=== PATIENT | male | born 1945 | race Caucasian/White ===

== ENCOUNTER 2017-01-07 21:47 | Inpatient (IN) | payer MEDICARE, OTHER ==
[~2017-01-07] VITALS: Ht 180.3 cm; Wt 84.4 kg
[~2017-01-07 21:47] MED LIST: ATENOLOL25 MG PO; CLARITIN 10MG T10 MG PO; HYDROCHLOROTHIA25 M1 PO; PREDNISONE 20MG20 MG PO; TRAZODONE100 MG PO
[2017-01-07 21:48] VITALS: BP 139/89
[2017-01-07] MEDS ORDERED: ASPIRIN 81MG TA81 MG PO (22:02)
[2017-01-07] MEDS ORDERED: GABAPENTIN800 MG PO (22:04)
--- NOTE | 2017-01-07 22:07 | Emergency Room Report ---
History of Present Illness Time Seen by [id number] Presenting Problem in Triage Pt arrived:Walked Presenting Problem:CHEST PAIN FOR 2 HOURS CONSTANT DESCRIBES A BURNING PAIN. DENIES SOB, STATES ARMS ARE HURTING. 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 N Clinical Suspician of Infection? N Mental Status: 1 - Regular (Normal Baseline) Sepsis Risk:Low Sepsis Risk Have you (or family members/close friends) recently traveled outside the [place]? N If Yes, where/when: Have you had exposure to infectious disease within the past month? N TB? Other? Specify: Source patient, RN notes reviewed, family, old records Exam Limitations no limitations Comment pt with acute onset of chest pain with diaphoresis and pain to upper ext - no known ht disease and has htn and tob use Cardiac Chest Pain Chest pain indicative of cardiac Yes Timing/Duration 1 hour, constant Severity/Quality moderate, pressure Location central Chest Pain Radiation arm(s) Activities at Onset light activity Nitro Today/Relief no nitro taken today Aspirin Treatment Today 325 mg x 1, provided by ED Beta michael treatment today no beta michael taken Cardiac risk factors Uncontrolled HTN, + family history Prior Workup/Intervention no prior chest pain Timing/Duration this evening Severity moderate ALLERGIES Coded Allergies: No Known Allergies (01/07/17) Home Medications Reported Medications Atenolol (Atenolol) 12.5 MG PO DAILY HYDROCHLOROTHIAZIDE (Hydrochlorothiazide) 25 MG PO DAILY Trazodone Hcl (Trazodone HCl) 100 MG PO QHS ASPIRIN (Aspirin) 81 MG PO DAILY Gabapentin (Gabapentin 800MG) 800 MG PO TID History Medical History General CAD? Yes Angina: No AL: No Hypertension? Yes Hyperlipidemia? No CHF? No DVT? No PE? No COPD? No Asthma? No Anemia? No GERD? No Gastric ulcers? No GI Bleed? No Hernia? No Thyroid Problems? No Hypothyroidism? No CVA? No Seizures? No Diabetes? No Renal Insuffiency? No End Stage Renal Disease? No UTI? No Stones? No BPH? No GB Disease: No Nephritic Syndrome? No Asplenia? No Hepatitis? No Sickle Cell Disease? No Arthritis? Yes Migraines? No Cataracts? No Glaucoma? No MRSA? No HIV? No TB? No Anxiety? No Depression? No Cancer? No More? No Immunization Hx DT/Tetanus Unknown Surgical Hx Previous Surgery?Y KNEE ARTHROSCOPY BACK SURGERY TRIGGER FINGER Family History Family Hx Diabetes Yes CAD No Hypertension Yes Hyperlipidemia No Cancer Yes TB No Social History Smoking Hx Smoker: Current Every Day Smoker Tobacco: Yes Type Cigarettes Packs/day 1 1/2 - 2 Packs Alcohol Alcohol: No Drugs none Review of Systems All Other Systems Reviewed and Negative Constitutional denies fever Eyes denies drainage ENT denies: ear pain, epistaxis, throat pain. Respiratory denies cough, denies shortness of breath, denies wheezing Cardiovascular see HPI, chest pain, denies palpitations, denies syncope Gastrointestinal denies abdominal pain, denies diarrhea, denies vomiting Genitourinary denies: dysuria, frequency, hesitancy, hematuria. Musculoskeletal denies back pain, denies joint pain, denies joint swelling, denies neck pain Skin denies rash Psychiatric/Neurological denies headache, denies seizure Physical Exam Vital Signs Vital Signs Date Time Temp Pulse Resp B/P Pulse O2 O2 Flow FiO2 Ox Delivery Rate 01/07 2148 91 18 139/89 95 - WBC >12,000 or <4,000 or 10% bands? 2 or more SIRS Criteria Met? B/P:139/89 MAP:105 Creatinine >2.0? UA output<0.5ml/kg/hr for 2 hrs? Platelet count >100,000? Lactate >2.0mmol/1? INR >1.2 or PTT > than 60 sec? Evidence of Organ Dysfunction? Provider documented clinical suspician of infection? N Sepsis Criteria Count: 1 Sepsis Risk: Low Sepsis Risk General Appearance no apparent distress Eye Exam - bilateral eye PERRL, bilateral eye EOMI Ear, Nose, Throat normal ENT inspection Neck supple Respiratory Status No: respiratory distress. Lung Sounds bilateral: lungs clear. Cardiovascular regular rate/rhythm, systolic murmur Peripheral Pulses Pulses normal Yes Gastrointestinal soft Extremities normal inspection Strength 4 Upper Ext (L), 4 Upper Ext (R), 4 Lower Ext (L), 4 Lower Ext (R) Neurologic alert, licensed audiologist II-XII nml as tested, no motor/sensory deficits Reflexes Reflexes normal No Mental status normal mood/affect Skin intact Medical Decision Making LABS/Meds/Orders Pt receiving controlled substance in ED? No Results/Orders Current Medication Orders Sig/Vincent Start time Last Medication Dose Route Stop Time Status Admin Aspirin 0 .STK-MED ONE 01/07 2217 DC .ROUTE Heparin Sodium 9,000 UNITS ONCE ONE 01/07 2215 DC (Porcine) IV 01/08 2216 Prasugrel 60 MG ONCE ONE 01/07 2215 DC PO 01/08 2216 Heparin Sodium 0 .STK-MED ONE 01/07 2213 DC (Porcine) .ROUTE Heparin Sodium/ 500 ML .STK-MED ONE 01/08 2212 DC Dextrose IV Prasugrel 0 .STK-MED ONE 01/07 2210 DC PO Orders Procedure Date/time Status ELECTROCARDIOGRAM REQUEST 01/07 2218 Active CHEST-PORTABLE 01/07 2218 Active PARTIAL THROMBOPLASTIN TIME 01/07 2218 Active PROTHROMBIN TIME 01/07 2218 Active COMPLETE METABOLIC PANEL 01/07 2218 Active CBC WITH AUTO DIFF 01/07 2218 Active CARDIAC ENZYMES 01/07 2218 Active 12 LEAD EKG-KILEY (INITIAL) 01/07 2141 Active CM/EKG CM/EKG 1 Monitor Rhythm Normal Sinus Rhythm EKG ST elevation CM/EKG [address] elevation Departure Departure Time of Disposition 2212 Disposition Still a Patient Clinical Impression Primary Impression: STEMI (ST elevation myocardial infarction) Qualifiers: Involved coronary artery: unspecified coronary artery Qualified Code: I21.3 - ST elevation (STEMI) myocardial infarction of unspecified site Condition STABLE Referrals Fuentes Foley MD discussed with dr foley- dr reyes notified ED Critical Care Critical Care Yes Time spent < 30 min Vital system(s) involved: stemi I was present at bedside for Coordinating pt's care, Interpreting EKGs/Strips , During my initial exam, Reviewing old records, Discussing pt condition, For re -examinations, Examining radiographs at 2222
--- OUTSIDE RECORDS SUMMARY | 2017-01-07 22:12 | External Medical Summary Rpt ---
Author Author [employer] Organization [employer] Address Unknown Phone Unavailable Purpose Continuity of Care Document - through 2016
--- OUTSIDE RECORDS SUMMARY | 2017-01-07 22:12 | External Medical Summary Rpt ---
Demographics Preferred Language Upper Sorbian Marital Status Unknown Roman Catholic Affiliation Unknown Race Unknown Ethnic Group Unknown Author Author JANIE Address Unknown Phone Immunization No patient found.
--- OUTSIDE RECORDS SUMMARY | 2017-01-07 22:12 | External Medical Summary Rpt ---
Demographics Preferred Language Italian Marital Status Unknown Congregation Affiliation Unknown Race Unknown Ethnic Group Unknown Author Author JANIE Address Unknown Phone Immunization No patient found.
[2017-01-07 22:25] LABS: HEMOGLOBIN 17.1 g/dL (14.1-18.0); LYMPH # 1.4 K/mm3 (0.7-4.5); LYMPH % 13.7 % (10-50)
--- OUTSIDE RECORDS SUMMARY | 2017-01-07 23:07 | External Medical Summary Rpt ---
Demographics Preferred Language Kyrgyz Marital Status Unknown Moravian Affiliation Unknown Race Unknown Ethnic Group Unknown Author Author JANIE Address Unknown Phone Immunization No patient found.
--- OUTSIDE RECORDS SUMMARY | 2017-01-07 23:07 | External Medical Summary Rpt ---
Demographics Preferred Language Wolof Marital Status Unknown Muslim Affiliation Unknown Race Unknown Ethnic Group Unknown Author Author JANIE Address Unknown Phone Immunization No patient found.
--- OUTSIDE RECORDS SUMMARY | 2017-01-07 23:07 | External Medical Summary Rpt ---
Author Author , JANIE ANDERSEN Address Unknown Phone [email or web address] Purpose Continuity of Care Document - through 2016 Problems Code Diagnosis DOS Provider Status I21.3 ST ELEVATION (STEMI) MYOCARDIAL INFARCTION OF [facility] SITE K80.20 CALCULUS OF GALLBLADDER W/O CHOLECYSTIT IS W/O OBSTRUCTION M51.16 INTERVERTEB RAL DISC DISORDERS W RADICULOPAT HY, LUMBAR REGION M54.16 RADICULOPAT HY, LUMBAR REGION
--- OUTSIDE RECORDS SUMMARY | 2017-01-07 23:07 | External Medical Summary Rpt ---
Author Author , JANIE ANDERSEN Address Unknown Phone [email or web address] Purpose Continuity of Care Document - through 2016 Problems Code Diagnosis DOS Provider Status I21.3 ST ELEVATION (STEMI) MYOCARDIAL INFARCTION OF [facility] SITE K80.20 CALCULUS OF GALLBLADDER W/O CHOLECYSTIT IS W/O OBSTRUCTION M51.16 INTERVERTEB RAL DISC DISORDERS W RADICULOPAT HY, LUMBAR REGION M54.16 RADICULOPAT HY, LUMBAR REGION
[2017-01-08] VITALS (27 sets, daily range): BP systolic 91–130; BP diastolic 58–81
--- NOTE | 2017-01-08 01:20 | RADIOLOGY REPORT PS360 ---
CARDIAC CATHETERIZATION DATE OF CATHETERIZATION:01/07/2017 10:48 PM PROCEDURES: 1. Left heart catheterization 2. Left ventriculogram 3. Selective coronary angiogram 4. Drug-eluting stent deployment to the proximal mid left anterior descending artery 5. Drug-eluting stent deployment to the ostial distal left main artery 6. Drug-eluting stent deployment to the distal dominant right coronary INDICATION FOR TEST: 1. Acute anterior ST elevation myocardial infarction 2. Cardiogenic shock 3. Coronary artery disease Informed consent was obtained prior to the procedure. COMPLICATIONS: None ESTIMATED BLOOD LOSS: Less than 10 ml. TECHNIQUE: One percent lidocaine used to anesthetize the right anterior aspect of the wrist. The right radial artery was accessed via the Seldinger technique. A 6 Serbian sheath was placed in the right radial artery. 2.5 mg of verapamil, 800 mcg of nitroglycerin and were given through the arterial sheath. 60 mg of Effient and 9000 units of heparin was administered in the emergency department prior to transportation to the [facility]. The initial ACT was 304 seconds. An Tellagence left guide catheter was used intubate the left main artery and angiography demonstrated an ostial occlusion of the left anterior descending artery. A choice PT extra-support wire was used to push through the occlusion. A 2.5 x 20 mm balloon was used to predilate the mid proximal ostial left main artery restoring ROSINA-3 flow. A 3 mm x 38 mm resolute stent was deployed in the mid LAD and deployed at 18 carlos reducing the 100% occlusion to 0%. An additional 3.5 x 30 mm resolute [place] stent was placed in the ostium of the LAD overlapping the first stent and deployed at 18 carlos. Repeat angiography demonstrated there was a small defect in either the distal left main R ostial LAD that did not appear to be angiographically satisfactory. A 4 mm x 12 mm resolute Anand stent was then placed in the left main artery extending into the ostial LAD and deployed at 14 carlos. Following this a 5 mm x 8 mm noncompliant balloon was taken at 20 carlos in the proximal portion of the left main stent out of the LAD. Excellent angiographic results were obtained with ROSINA 0 flow at the beginning of the procedure and ROSINA-3 flow at the end of the procedure. There was no angiographic encroachment upon the circumflex artery therefore the left coronary system was terminated. The same catheter was used intubate the right coronary artery and a distal greater than 90% stenosis was identified. Because patient had an akinetic anterior wall with LVEDP of 40 hypotensive and tachycardic it was decided to open this vessel therefore a BMW wire was placed distally and a 2.5 x 12 mm balloon was taken to 18 carlos to predilate the occlusion. Proximally there were 40 and 50% stenoses therefore a 3 mm x 38 mm resolute Anand stent was placed from a normal proximal segment through the 40 and 50% stenoses covering the 90% stenosis and terminating into the distal right coronary artery proximal to the bifurcation of the PDA. This was deployed at 18 carlos giving excellent angiographic results with ROSINA-3 flow down the vessel before and after the procedure. The closing ACT was out of range greater than 400 seconds. At the end of the procedure the apparatus was removed the sheath was removed good hemostasis was achieved using TR banding patient was transferred to the postop holding area in stable condition ANGIOGRAPHIC RESULTS: 1. The left main artery has a distal 20% stenosis 2. The left anterior descending artery is ostially occluded. After the stenting the ostial proximal LAD was widely patent with a persistent 60% stenosis and a 2.5 to 2.75 mm mid to distal LAD segment. The LAD was a massively large vessel which wraps the apex and supplies a portion of the inferior wall. 3. The ramus intermedius is a medium-size vessel and has proximal 50-60% nonflow limiting stenosis 4. The circumflex artery is a large vessel giving rise to a very large first obtuse marginal artery. Proximally the vessel has 30 and 40% stenoses with mid vessel 30% stenoses 5. The right coronary artery is a dominant vessel proximal 40-50% stenosis mid vessel 40% stenosis and a distal greater than 90% stenosis preceded by a long concentric 50% stenosis 6. The GATES ventriculogram reveals severe left ventricular dilatation with and a [place] anterior wall estimated ejection fraction 15-20% 7. The left ventricular end-diastolic pressure is severely elevated at 40 mmHg IMPRESSION: 1. Acute anterior ST elevation involving the ostial proximal mid left anterior descending artery and a massively large wraparound apex left anterior descending artery 2. Successful stenting of the ostial proximal mid LAD 100% occlusion reduced to 0% with 2 drug-eluting stents 3. Successful stenting of the mid distal left main artery 20% stenosis with distal defect reduced to 0% with 1 drug-eluting stent postdilated with a 5 mm x 8 mm balloon 4. Persistent moderate stenosis in the small to medium ramus intermedius 5. Mild to moderate nonflow limiting disease in a large nondominant circumflex artery 6. Severe to critical disease in the distal dominant right coronary artery 7. Successful stenting of a critically disease distal dominant right coronary artery critical disease reduced to 0% with 1 drug-eluting stent 8. Akinetic anterior wall with estimated ejection fractions 15-20% 9. Severely elevated LVEDP stemming from acute LV dysfunction PLAN: 1. Effient 10 mg daily followed by aspirin 81 mg daily 2. Marvin inhibitors such as lisinopril 2.5 mg by mouth twice a day should be started soon is possible and up titrated. It is more important to add and uptitrate marvin inhibitors at this point and hold off on beta blockers until patient is on at least 10 mg twice a day of lisinopril 3. LDL less than 55 4. Avoidance of tobacco products 5. Cardiac rehabilitation after 6 weeks of recovery 6. A lifevest should be placed on patient prior to discharge home 7. Patient should be monitored in the intensive care unit for the next 48 hours as he is at increased risk for complications due to his anterior akinesis and previous cardiogenic shock
--- NOTE | 2017-01-08 07:35 | HISTORY AND PHYSICAL REPORT ---
Demographics: Admit date: 01/08/17 Chief complaint: Myocardial infarction PRIMARY DIAGNOSIS: STEMI Allergies: Coded Allergies: No Known Drug Intolerances (NA 01/08/17) History of present illness: History of present illness: 71-year-old white male, patient of the [facility], who is a heavy smoker, 2 packs per day for many years, who came to the emergency department via life squad with chest pain, and EKG signified ST elevation myocardial infarction. Taken urgently to the catheter lab and stented. Transfer to the intensive care unit where I am evaluating him today. He currently has no complaints. Eating breakfast. No further pain. No shortness of her this morning. Past medical history: Family HX Diabetes Yes CAD No Hypertension Yes Hyperlipidemia No Cancer Yes TB No Immunization HX DT/Tetanus Unknown Pneumonia Received In Past TB Test in last year No General CAD? Yes Angina: No [place]: Yes Hypertension? Yes Hyperlipidemia? No CHF? No DVT? No PE? No COPD? No Asthma? No Anemia? No GERD? No Gastric ulcers? No GI Bleed? No Hernia? No Thyroid Problems? No Hypothyroidism? No CVA? No Seizures? No Diabetes? No Renal Insuffiency? No UTI? No Stones? No BPH? No GB Disease: No Nephritic Syndrome? No Asplenia? No Hepatitis? No Sickle Cell Disease? No Arthritis? Yes Migraines? No Cataracts? No Glaucoma? No MRSA? No HIV? No TB? No Anxiety? No Depression? No Cancer? No More? No Past Surgical HX Previous Surgery?Y KNEE ARTHROSCOPY BACK SURGERY TRIGGER FINGER Current home meds: Reported Medications Atenolol (Atenolol) 12.5 MG PO DAILY HYDROCHLOROTHIAZIDE (Hydrochlorothiazide) 25 MG PO DAILY Trazodone Hcl (Trazodone HCl) 100 MG PO QHS ASPIRIN (Aspirin) 81 MG PO DAILY Gabapentin (Gabapentin 800MG) 800 MG PO TID Social Hx: Smoking HX Tobacco Yes Type Cigarettes Packs/day 1 1/2 - 2 PACKS Are you/the child exposed to second-hand smoke: No Alcohol Alcohol: No Hx of Drug Use Drug Use? No Patien't marital status is Patient's support system is good Review of systems: Constitutional No: fever, malaise, weakness. Respiratory No: no symptoms reported. Cardiovascular see HPI Gastrointestinal/Abdominal No no symptoms reported Genitourinary No: no symptoms reported. Musculoskeletal back pain, joint pain. Neurological Yes: tingling (and left leg). Exam: Lab data for last 24 hours: Laboratory Tests 01/07/17 2329: POC Activ Clotting Time >400 *H 01/07/17 2302: POC Activ Clotting Time 304 *H 01/07/17 2200: Sodium 136, Potassium 3.3 L, Chloride 98, Carbon Dioxide 33 H, BUN 17, Creatinine 1.1, Estimated Creat Clear 72, Estimated GFR (MDRD) 66, Glucose 146 H, Calcium 9.2, Total Bilirubin 0.5, AST 35, ALT 33, Alkaline Phosphatase 62, Creatine Kinase 126, CK-MB (CK-2) Rel Index 11.4 *H, CK and CKMB Interp 14.4 *H, Troponin I 1.63 H, Total Protein 7.5, Albumin 3.9, Globulin 3.6 H, Albumin/ Globulin Ratio 1.1, PT 10.4, INR 0.96, APTT 25.5, WBC 9.9, RBC 5.59, Hgb 17.1, Hct 51.8, MCV 92.7, RDW 13.4, Plt Count 206, MPV 7.2 L, Gran % 78.3, Gran # 7.7 , Lymphocytes % 13.7, Monocytes % 5.7, Eosinophils % 1.4, Basophils % 0.9, Lymphocytes # 1.4, Monocytes # 0.6, Eosinophils # 0.1, Basophils # 0.1, PUBS MCHC 33.0, MCH 30.6 Admission vital signs: 1ST Vital Signs Result Date Time Pulse Ox 95 01/08 2148 B/P 139/89 01/08 2148 Pulse 91 01/08 2148 Resp 18 01/08 2148 O2 Flow Rate 2 01/08 0100 O2 Delivery ROOM AIR 01/08 0156 Temp 97.8 01/08 0156 Exam General appearance: normal appearance, alert, awake Eyes: normal exam, anicteric ENT: normal exam, mucous membranes moist Neck: normal inspection, non-tender, no carotid bruit, no JVD Cardiovascular: normal exam Respiratory: normal exam, clear to auscultation ABD: normal exam, non-distended, normal bowel sounds Extremities: normal exam Skin: normal exam, intact, normal color Neuro: normal exam, alert, no deficit Plan: Problem List 1. STEMI (ST elevation myocardial infarction) 2. Congestive heart failure (CHF) Plan: I reviewed the data from catheter lab. Stent placement accomplished. Anterior wall dyskinesis noted. Titrate lisinopril dose very slowly today given patient's relative low blood pressure. We'll start at 2.5 b.i.d. Start high-dose high potency statin. Hold beta michael at this point. Restart cautiously if patient becomes tachycardic or blood pressure increases. Continue dual antiplatelet therapy. Watch rhythms carefully. Note one-hour critical care time. at 0735
--- NOTE | 2017-01-08 07:49 | RADIOLOGY REPORT PS360 ---
CHEST-PORTABLE HISTORY: . chest pain ORDERING PHYSICIAN: Fuentes Georges MD PATIENT AGE: 71 years COMPARISON: None available FINDINGS: There is mild cardiomegaly without failure. No lobar consolidation or collapse. There is some hyperattenuation of the upper lobe suggesting COPD. The mid to lower aspect of the chest is somewhat underpenetrated. No acute bony anomalies. IMPRESSION: Cardiomegaly with COPD
--- NOTE | 2017-01-08 09:09 | PHARMACY CLINIC NOTE ---
Patient Demographics Patient Demographics Admission date: 01/08/17 Date: 01/08/17 Time: 09 Allergies Coded Allergies: No Known Drug Intolerances (NA 01/08/17) HEIGHT- FT: 5 IN: 11.00 K.843 VTE General Information Labs: Laboratory Tests 01/07 2200 Coagulation PT (9.4 - 11.8 SECONDS) 10.4 INR (0.9 - 1.1) 0.96 APTT (23.6 - 34.0 SECONDS) 25.5 Hematology Hgb (14.1 - 18.0 g/dL) 17.1 Hct (42.0 - 52.0 %) 51.8 Plt Count (142 - 424 K/mm3) 206 Disclaimer The following section includes nursing documentation that has been pulled in for pharmacy review. Patient's VTE score: 4 Patient's VTE Risk: MOD RISK Clinical trial participant? No VTE prophylaxis [id number] VTE prophylaxis ordered? Yes Type of prophylaxis/treatment: KAHLIL at 0909
[2017-01-09] VITALS (13 sets, daily range): BP systolic 85–121; BP diastolic 32–63
[2017-01-09 05:21] LABS: LYMPH # 1.2 K/mm3 (0.7-4.5); LYMPH % 13.6 % (10-50)
[2017-01-09 05:22] LABS: HEMOGLOBIN 14.8 g/dL (14.1-18.0)
--- NOTE | 2017-01-09 07:12 | ACUTE CARE PROGRESS NOTE (QUA) ---
See Addendum Progress Notes Subjective Date 01/09/17 Time 0711 Note Patient overall doing well. Tolerated lisinopril b.i.d. through the night. Feels good and has no significant vital sign abnormalities. Lungs are clear, heart rate regular. Patient alert and awake and oriented breakfast Objective Findings Last VS-Temp:97.6 B/P:109/63 Pulse:90 Resp:20 SaO2:99 OXYGEN Last weight lbs:186 oz:1 K.397 Method:Bed Scales Assessment/Plan Problem List 1. STEMI (ST elevation myocardial infarction) Qualifiers: Involved coronary artery: unspecified coronary artery Qualified Code: I21.3 - ST elevation (STEMI) myocardial infarction of unspecified site 2. Congestive heart failure (CHF) Patient condition Improving Plan: initiate discharge plan This inpt stay is expected to cross 2 MNs from start of care Yes at 0711
[2017-01-09] MEDS ORDERED: EFFIENT10 M2 PO (07:28)
[2017-01-09] MEDS ORDERED: LISINOPRIL2.5 M1 PO (07:28)
[2017-01-09] MEDS ORDERED: LIPITOR40 M1 PO (07:28)
--- NOTE | 2017-01-09 07:32 | DISCHARGE SUMMARY STANDARD ---
Demographics Admit date: 01/08/17 Discharge date: 01/09/17 History of present illness History of present illness 71-year-old white male, patient of the [facility], who is a heavy smoker, 2 packs per day for many years, who came to the emergency department via life squad with chest pain, and EKG signified ST elevation myocardial infarction. Taken urgently to the catheter lab and stented. Transfer to the intensive care unit where I am evaluating him today. He currently has no complaints. Eating breakfast. No further pain. No shortness of her this morning. Hospital Course Hospital Course: Patient did well after heart catheterization procedure. He tolerated the procedure well and did fine with this. Tolerated low-dose HIEN inhibitor well and had no further problems with chest pain or dysrhythmias. This morning he feels well. We discharged home with short-term cardiology followup. He'll be placed on antiplatelet therapy, aspirin, high-dose statins and his HIEN inhibitor is noted. Discharge diagnoses Problem List 1. STEMI (ST elevation myocardial infarction) 2. Congestive heart failure (CHF) Medications Medications: Discharge meds are as noted. Follow up Follow up in office in: 4 DAYS with: Fuentes Georges MD at 0731
--- NOTE | 2017-01-09 08:09 | CONSULT NOTE ---
Standard Demographics Patient Demo Date of Consultation: 01/07/17 Referring Provider: Isael Scales MD Reason for Consultation: STEMI PRIMARY DIAGNOSIS: STEMI Problem list Problem list: 1. Tobacco use 2. Hyperlipidemia 3. Hypertension 4. Possible TIA, 09/2016 [facility]. 5. Chronic back pain with neuropathy History of present illness: History of present illness: 71-year-old white male, patient of the [facility], who is a heavy smoker, 2 packs per day for many years, who came to the emergency department via life squad with chest pain, and EKG signified ST elevation myocardial infarction. Taken urgently to the catheter lab and stented. The above per Dr. Scales. Patient was admitted for acute STEMI with subsequent urgent cardiac catheterization with coronary stenting to the left anterior descending and RCA with LEFT ventriculogram showing EF of between 15-25 percent. Telemetry has revealed some short nonsustained runs of ventricular tachycardia/reperfusion arrhythmias the patient has remained stable. Repeat echocardiogram today to reassess LV function the recommendation will be for LifeVest therapy for the next 3 months. Past Medical History: General: Hypertension Yes CVA No Seizures No TB No COPD No Asthma No Diabetes No Angina No AL Yes Hyperlipidemia No Cancer No Ulcers No MRSA No GB Disease No Past Surgical HX: Previous Surgery?Y KNEE ARTHROSCOPY BACK SURGERY TRIGGER FINGER Allergies Coded Allergies: No Known Drug Intolerances (NA 01/08/17) Home medications: Reported Medications Atenolol (Atenolol) 12.5 MG PO DAILY HYDROCHLOROTHIAZIDE (Hydrochlorothiazide) 25 MG PO DAILY Trazodone Hcl (Trazodone HCl) 100 MG PO QHS ASPIRIN (Aspirin) 81 MG PO DAILY Gabapentin (Gabapentin 800MG) 800 MG PO TID Current Medications: Current Medications Atorvastatin Calcium 80 MG QHS PO Aspirin 81 MG DAILY PO Lisinopril 2.5 MG BID PO Prasugrel 10 MG DAILY PO Acetaminophen 650 MG Q6HP PRN PO (DC) Diazepam 5 MG Q4HP PRN PO (DC) Hydrocodone Bitart/Acetaminophen 1 TAB Q6HP PRN PO (DC) Hydrocodone Bitart/Acetaminophen 2 TAB Q6HP PRN PO (DC) Morphine Sulfate 2 MG Q1HP PRN IV (DC) Morphine Sulfate 4 MG Q1HP PRN IV (DC) Ondansetron HCl 4 MG Q4HP PRN IV (DC) Promethazine HCl 12.5 MG Q4HP PRN IV (DC) Sodium Chloride 25 ML Q4HP PRN IV (DC) Sodium Chloride 25 ML PRN PRN IV Fentanyl Citrate 25 MCG PRN PRN IV (DC) Fentanyl Citrate 50 MCG PRN PRN IV (DC) Flumazenil 0.2 MG PRN PRN IV (DC) Heparin Sodium (Beef Lung) 5,000 UNITS PRN PRN IV (DC) Heparin Sodium/Sodium Chloride 3,000 UNITS PRN PRN IV (DC) Midazolam HCl 1 MG PRN PRN IV (DC) Midazolam HCl 1 MG PRN PRN IV (DC) Naloxone HCl 0.4 MG [id number] PRN IV (DC) Nitroglycerin 800 MCG PRN PRN IV (DC) Sodium Chloride 10 ML PRN PRN IV Sodium Chloride 1,000 ML .Q25H IV Verapamil HCl 5 MG PRN PRN IV (DC) Immunization HX DT/Tetanus Unknown Pneumonia RECEIVED IN PAST TB Test in last year No Family history Family HX Family Hx Insignificant No Diabetes Yes CAD No Hypertension Yes Hyperlipidemia No Cancer Yes TB No Social Hx: Smoking HX Tobacco Yes Type Cigarettes Packs/day 1 1/2 - 2 PACKS Are you/the child exposed to second-hand smoke: No Alcohol Alcohol: No Hx of Drug Use Drug Use? No Review of systems: Constitutional No: no symptoms reported. Respiratory SOB with excertion. Cardiovascular see HPI, chest pain Gastrointestinal/Abdominal No no symptoms reported Genitourinary No: no symptoms reported. Musculoskeletal back pain. Neurological Yes: parasthesia. Exam: Admission Vital Signs: 1ST Vital Signs Result Date Time Pulse Ox 95 01/07 2148 B/P 139/89 01/07 2148 Pulse 91 01/07 2148 Resp 18 01/07 2148 O2 Flow Rate 2 01/08 0100 O2 Delivery ROOM AIR 01/08 0156 Temp 97.8 01/08 0156 Last Vital Signs: Vital Signs Result Date Time Pulse Ox 99 01/09 0703 B/P 109/63 01/09 07 O2 Delivery OXYGEN 01/09 07 O2 Flow Rate 2 01/09 0703 Pulse 90 01/09 0703 Resp 20 01/09 0703 Temp 97.6 01/09 0458 Exam General appearance: alert, awake, no acute distress Neck: no carotid bruit, no JVD Cardiovascular: regular rate & rhythm, no murmur Respiratory: decreased breath sounds without rales or wheezing noted. ABD: soft, no tenderness Extremities: moves all, no peripheral edema Neuro: alert, intact, oriented Laboratory data: Laboratory Tests 01/09/17 0510: Sodium 133 L, Potassium 3.4 L, Chloride 98, Carbon Dioxide 29, BUN 8, Creatinine 0.7 L, Estimated Creat Clear 119, Estimated GFR (MDRD) 112, Glucose 108 H, Calcium 8.4 L, WBC 8.9, RBC 4.72, Hgb 14.8, Hct 43.4, MCV 92.0, RDW 13.5, Plt Count 147, MPV 7.2 L, Gran % 78.4, Gran # 7.0, Lymphocytes % 13.6, Monocytes % 6.3, Eosinophils % 1.3, Basophils % 0.5, Lymphocytes # 1.2, Monocytes # 0.6, Eosinophils # 0.1, Basophils # 0.0, PUBS MCHC 34.1, MCH 31.4 H 01/08/17 0724: Triglycerides 104, Cholesterol 154, LDL Cholesterol 88.2, VLDL Cholesterol 20.8, HDL Cholesterol 45.0 01/07/17 2329: POC Activ Clotting Time >400 *H 01/07/17 2302: POC Activ Clotting Time 304 *H 01/07/17 2200: Sodium 136, Potassium 3.3 L, Chloride 98, Carbon Dioxide 33 H, BUN 17, Creatinine 1.1, Estimated Creat Clear 72, Estimated GFR (MDRD) 66, Glucose 146 H, Calcium 9.2, Total Bilirubin 0.5, AST 35, ALT 33, Alkaline Phosphatase 62, Creatine Kinase 126, CK-MB (CK-2) Rel Index 11.4 *H, CK and CKMB Interp 14.4 *H, Troponin I 1.63 H, Total Protein 7.5, Albumin 3.9, Globulin 3.6 H, Albumin/ Globulin Ratio 1.1, PT 10.4, INR 0.96, APTT 25.5, WBC 9.9, RBC 5.59, Hgb 17.1, Hct 51.8, MCV 92.7, RDW 13.4, Plt Count 206, MPV 7.2 L, Gran % 78.3, Gran # 7.7 , Lymphocytes % 13.7, Monocytes % 5.7, Eosinophils % 1.4, Basophils % 0.9, Lymphocytes # 1.4, Monocytes # 0.6, Eosinophils # 0.1, Basophils # 0.1, PUBS MCHC 33.0, MCH 30.6 Plan: Assessment: 1. ST elevation myocardial infarction, cardiogenic shock with subsequent stenting of the left anterior descending and RCA arteries. 2. Severe cardiomyopathy with EF of 15-25 percent at the time of cardiac cath 3. Tobacco use 4. Dyslipidemia Recommendations: 1. Continue HIEN inhibitor therapy and titrate up as tolerated in light of severe cardiomyopathy. Continue dual antiplatelet therapy. 2. Obtain an echocardiogram today to follow-up on the patient's ejection fraction but LifeVest has been recommended. Patient is agreeable to proceed with this. 3. Agree with the discharge later today. [facility]. Medication compliance urged. 4. Smoking cessation strongly encouraged. at 0808
--- NOTE | 2017-01-09 16:46 | RADIOLOGY REPORT PS360 ---
ECHO ADULT PROCEDURE: INDICATIONS FOR THE TEST: Chest pain X COPD Heart Murmur Tobacco SmokingX Palpitations Fatigue Syncope Edema HypertensionXDiabetes Mellitus Rheumatic Fever SOB BARNHART Obesity HyperlipidemiaX Family History HD Additional History PATIENT INFORMATION HEIGHT: 71 WEIGHT:186 GENDER: Male B/P:139/89 2-D/M-MODE INTERPRETATION: 2-D MEASUREMENTS OBSERVED VALUES IN CMS Right Ventricular Dimension (RVDd) 2.6 Interventricular Septum (Thickness)(IVsd) .9 Left Ventricular Internal Dimensions(LVIDd) 6.1 Left Ventricular Posterior Wall (Thickness)(LVPWd) 1.1 Aortic Root 3.5 Aortic Cusp Separation 2.1 Left Atrial Dimensions (LAD) 3.1 2D 1. Left atrium is mildly enlarged, left medical is mildly dilated, there is severely reduced left ventricular systolic function, visually estimated ejection fraction approximately 25-30%, there is marked hypokinesis involving mid to distal septum anterior, anteroapical and apical wall, there is echodensity seen on the left ventricular apex and in the anterior wall which likely represents mural thrombus. Definity contrast was utilized to delineate endocardial surfaces. 2. The right atrium and right ventricle are normal size and contractility. 3. The aortic, mitral and tricuspid valve are structurally normal. 4. The pulmonic valve is poorly visualized. 5. No significant pericardial effusion noted DOPPLER INTERROGATION: Doppler interrogation of the aortic mitral and tricuspid valvular presence of mild mitral and tricuspid regurgitation, tricuspid and jet velocity insufficient for calculation of the right ventricular systolic pressure, grade 1 diastolic dysfunction seen without tissue Doppler evidence of raised left atrial pressure. CONCLUSION: 1. Mildly enlarged left atrium, mildly dilated left ventricle, severely reduced left ventricular systolic function, visually estimated ejection fraction 25-30% with multiple segmental wall motion abnormality as described above, apical mural thrombus wasn't identified by Definity contrast study. 2. Mild mitral and tricuspid regurgitation, 3. Grade 1 diastolic dysfunction seen without tissue Doppler evidence of raised left atrial pressure. 4. No significant pericardial effusion noted.
[2017-01-10 00:12] VITALS: BP 94/48
[2017-01-10 04:01] VITALS: BP 98/61
--- NOTE | 2017-01-10 07:45 | ACUTE CARE PROGRESS NOTE (QUA) ---
Progress Notes Subjective Date 01/10/17 Time 0744 Note Patient was kept overnight because of bureaucratic issues with the [facility] approving his discharge and LifeVest. He's done well overnight. Exam is unchanged. Plan to discharge home as previously noted with the addition of warfarin. Objective Findings Last VS-Temp:98.9 B/P:98/61 Pulse:104 Resp:20 SaO2:93 ROOM AIR Last weight lbs:186 oz:1 K.397 Method:Bed Scales Assessment/Plan Problem List 1. STEMI (ST elevation myocardial infarction) Qualifiers: Involved coronary artery: unspecified coronary artery Qualified Code: I21.3 - ST elevation (STEMI) myocardial infarction of unspecified site 2. Congestive heart failure (CHF) This inpt stay is expected to cross 2 MNs from start of care Yes at 0744
[2017-01-10 08:00] VITALS: BP 109/66
--- NOTE | 2017-01-10 08:21 | ACUTE CARE PROGRESS NOTE (QUA) ---
Progress Notes Subjective Date 01/10/17 Time 0740 Note 71 yo WM in hallway in NAD. No chest pain, SOA while ambulating. Waiting for LifeVest to be approved by [place] [facility]. No bleeding with lovenox. Started coumadin also. Objective Findings Last VS-Temp:98.9 B/P:98/61 Pulse:104 Resp:20 SaO2:93 ROOM AIR Last weight lbs:186 oz:1 K.397 Method:Bed Scales Exam General appearance: alert, awake, no acute distress Cardiovascular: regular rate & rhythm Respiratory: clear to auscultation Reviewed: medications, vital signs, lab results Assessment/Plan Problem List 1. STEMI (ST elevation myocardial infarction) Assessment/Plan: On DAPT (ASA and plavix). On statin. Qualifiers: Involved coronary artery: unspecified coronary artery Qualified Code: I21.3 - ST elevation (STEMI) myocardial infarction of unspecified site 2. Congestive heart failure (CHF) 3. LV (left ventricular) mural thrombus with acute CO Assessment/Plan: Started lovenox and coumadin yesterday. Will need INR tomorrow at [place] [facility]. 4. Cardiomyopathy, ischemic Assessment/Plan: HIEN inhibitor started with goal of titrating to 10 mg BID before starting Beta michael. BP running low. Patient condition Stable, Guarded Plan: As above. This inpt stay is expected to cross 2 MNs from start of care Yes at 0820
--- NOTE | 2017-01-10 08:21 | ACUTE CARE PROGRESS NOTE (QUA) ---
Progress Notes Subjective Date 01/10/17 Time 0740 Note 71 yo WM in hallway in NAD. No chest pain, SOA while ambulating. Waiting for LifeVest to be approved by [facility]. No bleeding with lovenox. Started coumadin also. Objective Findings Last VS-Temp:98.9 B/P:98/61 Pulse:104 Resp:20 SaO2:93 ROOM AIR Last weight lbs:186 oz:1 K.397 Method:Bed Scales Exam General appearance: alert, awake, no acute distress Cardiovascular: regular rate & rhythm Respiratory: clear to auscultation Reviewed: medications, vital signs, lab results Assessment/Plan Problem List 1. STEMI (ST elevation myocardial infarction) Assessment/Plan: On DAPT (ASA and plavix). On statin. Qualifiers: Involved coronary artery: unspecified coronary artery Qualified Code: I21.3 - ST elevation (STEMI) myocardial infarction of unspecified site 2. Congestive heart failure (CHF) 3. LV (left ventricular) mural thrombus with acute NC Assessment/Plan: Started lovenox and coumadin yesterday. Will need INR tomorrow at [place] [facility]. 4. Cardiomyopathy, ischemic Assessment/Plan: HIEN inhibitor started with goal of titrating to 10 mg BID before starting Beta michael. BP running low. Patient condition Stable, Guarded Plan: As above. This inpt stay is expected to cross 2 MNs from start of care Yes at 0820
[2017-01-10 08:51] VITALS: BP 109/66
[2017-01-10 12:00] VITALS: BP 102/66
[2017-01-10 15:45] VITALS: BP 102/66
== END 2017-01-10 16:10 | disposition home or self-care (01) | DRG 246 ==
LOC: ER 21:47 → CATHLAB 22:51 → 2ND 22:53 → CATHLAB 22:53 → 2ND 01-08 01:05
PROVIDERS: Emergency Medicine; Internal Medicine Adolescent Medicine
PROC: 4A023N7 Measurement of Cardiac Sampling and Pressure, Left Heart, Percutaneous Approach (ICD-10-PCS; principal; 2017-01-07)
PROC: 027236Z Dilation of Coronary Artery, Three Arteries with Three Drug-eluting Intraluminal Devices, Percutaneous Approach (ICD-10-PCS; 2017-01-07)
PROC: B2111ZZ Fluoroscopy of Multiple Coronary Arteries using Low Osmolar Contrast (ICD-10-PCS; 2017-01-07)
PROC: B2151ZZ Fluoroscopy of Left Heart using Low Osmolar Contrast (ICD-10-PCS; 2017-01-07)
DX: I21.09 ST elevation (STEMI) myocardial infarction involving other coronary artery of anterior wall (principal); R57.0 Cardiogenic shock; I42.9 Cardiomyopathy, unspecified; I23.6 Thrombosis of atrium, auricular appendage, and ventricle as current complications following acute myocardial infarction; I25.119 Atherosclerotic heart disease of native coronary artery with unspecified angina pectoris; Z72.0 Tobacco use; I10 Essential (primary) hypertension; I50.9 Heart failure, unspecified
CPT/HCPCS: C1725; C1769; C1876; G0378; J1644; Q9967

== ENCOUNTER 2017-02-03 09:46 | Outpatient (CLI) | payer OTHER, MEDICARE ==
[~2017-02-03 09:46] MED LIST changes: +ASPIRIN 81MG TA81 MG PO; +EFFIENT10 M2 PO; +GABAPENTIN800 MG PO; +LIPITOR40 M1 PO; +LISINOPRIL2.5 M1 PO
== END 2017-02-03 11:11 ==
LOC: ACC 09:46
DX: I23.6 Thrombosis of atrium, auricular appendage, and ventricle as current complications following acute myocardial infarction (principal); Z79.01 Long term (current) use of anticoagulants; Z51.81 Encounter for therapeutic drug level monitoring
CPT/HCPCS: G0463

== ENCOUNTER 2017-02-06 09:06 | Outpatient (CLI) | payer OTHER, MEDICARE | END 2017-02-06 11:43 | LOC: ACC 09:06 | DX: I23.6 Thrombosis of atrium, auricular appendage, and ventricle as current complications following acute myocardial infarction (principal); Z79.01 Long term (current) use of anticoagulants; Z51.81 Encounter for therapeutic drug level monitoring | CPT/HCPCS: G0463 ==

== ENCOUNTER 2017-02-20 08:49 | Outpatient (CLI) | payer OTHER, MEDICARE | END 2017-02-20 13:42 | LOC: ACC 08:49 | DX: I23.6 Thrombosis of atrium, auricular appendage, and ventricle as current complications following acute myocardial infarction (principal); Z79.01 Long term (current) use of anticoagulants; Z51.81 Encounter for therapeutic drug level monitoring | CPT/HCPCS: G0463 ==

== ENCOUNTER 2017-03-01 08:34 | Outpatient (CLI) | payer OTHER, MEDICARE | END 2017-03-01 15:17 | LOC: ACC 08:34 | DX: I23.6 Thrombosis of atrium, auricular appendage, and ventricle as current complications following acute myocardial infarction (principal); Z79.01 Long term (current) use of anticoagulants; Z51.81 Encounter for therapeutic drug level monitoring | CPT/HCPCS: G0463 ==

== ENCOUNTER 2017-03-10 08:50 | Outpatient (CLI) | payer OTHER, MEDICARE | END 2017-03-10 15:46 | LOC: ACC 08:50 | DX: I23.6 Thrombosis of atrium, auricular appendage, and ventricle as current complications following acute myocardial infarction (principal); Z79.01 Long term (current) use of anticoagulants; Z51.81 Encounter for therapeutic drug level monitoring | CPT/HCPCS: G0463 ==

== ENCOUNTER → 2017-03-13 | Outpatient (CLI) | payer OTHER, MEDICARE ==
--- NOTE | 2017-03-13 20:54 | RADIOLOGY REPORT PS360 ---
PROCEDURE: 2-D M-mode and color Doppler study INDICATIONS FOR THE TEST: Chest pain COPD Heart Murmur Tobacco SmokingX Palpitations Fatigue Syncope Edema HypertensionXDiabetes Mellitus Rheumatic Fever SOB BARNHART Obesity HyperlipidemiaX Family History HD Additional History CAD,LIFE VEST ECHO DONE 01/09/17 EF 25-35% PATIENT INFORMATION HEIGHT: 72 WEIGHT:180 GENDER: Male B/P:113/55 2-D/M-MODE INTERPRETATION: 2-D MEASUREMENTS OBSERVED VALUES IN CMS Right Ventricular Dimension (RVDd) 2.2 Interventricular Septum (Thickness)(IVsd) .9 Left Ventricular Internal Dimensions(LVIDd) 6.2 Left Ventricular Posterior Wall (Thickness)(LVPWd) 1.1 Aortic Root 3.4 Aortic Cusp Separation 1.3 Left Atrial Dimensions (LAD) 3.3 2D 1. Left atrium is mildly enlarged, left ventricle is mildly dilated, there is reduced left ventricular systolic function, visually estimated ejection fraction approximately 30%, there is marked hypokinesis involving mid to distal septum, anterior and anteroapical wall. 2. The right atrium and right ventricle are normal size and contractility. 3. The aortic valve is minimally thickened and fibrosed. 4. The mitral and tricuspid valve leaflets are minimally thickened. 5. The pulmonic valve is poorly visualized. 6. No significant pericardial effusion noted DOPPLER INTERROGATION: Doppler interrogation of the aortic, mitral and tricuspid valvular presence of mild mitral and tricuspid regurgitation, tricuspid regurgitant jet velocity is insufficient for calculation of the right ventricular systolic pressure, grade 1 diastolic dysfunction seen without tissue Doppler evidence of raised left atrial pressure. CONCLUSION: 1. Mildly enlarged left atrium, mildly dilated left ventricle, severely reduced left ventricular systolic function, visually estimated ejection fraction approximately 30% with multiple segmental wall motion abnormality described above, grade 1 diastolic dysfunction seen without tissue Doppler evidence of raised left atrial pressure. 2. Mild mitral and tricuspid regurgitation. 3. No significant pericardial effusion noted.
== END ==
LOC: RT 09:40
DX: I25.10 Atherosclerotic heart disease of native coronary artery without angina pectoris (principal); I11.9 Hypertensive heart disease without heart failure; I25.2 Old myocardial infarction; I51.3 Intracardiac thrombosis, not elsewhere classified; I42.9 Cardiomyopathy, unspecified; Z95.5 Presence of coronary angioplasty implant and graft

== ENCOUNTER → 2017-03-18 | Outpatient (CLI) | payer OTHER, MEDICARE | LOC: LAB 11:06 | DX: I25.10 Atherosclerotic heart disease of native coronary artery without angina pectoris (principal); I10 Essential (primary) hypertension; Z95.5 Presence of coronary angioplasty implant and graft ==

== ENCOUNTER → 2017-03-24 | Day surgery (SDC) | payer OTHER, MEDICARE ==
[~2017-03-24] VITALS: Ht 180.3 cm; Wt 84.8 kg
[2017-03-24 09:38] LABS: HEMOGLOBIN 14.4 g/dL (14.1-18.0); LYMPH # 1.4 K/mm3 (0.7-4.5)
[2017-03-24 09:41] LABS: BUN 9 mg/dL (7-18)
[2017-03-24 09:48] VITALS: BP 101/65
[2017-03-24 09:49] LABS: GFR (ESTIMATED) 96 ML/MIN (>60)
== END ==
LOC: SDC 08:47
PROVIDERS: Internal Medicine
DX: I25.5 Ischemic cardiomyopathy (principal); Z53.9 Procedure and treatment not carried out, unspecified reason

== ENCOUNTER 2017-03-28 06:05 | Day surgery (SDC) | payer OTHER, MEDICARE ==
--- NOTE | 2017-03-28 12:36 | RADIOLOGY REPORT PS360 ---
CHEST-PORTABLE HISTORY: POST AICD INSERTION. CXR FOR PLACEMENT ORDERING PHYSICIAN: Fuentes Geroges MD PATIENT AGE: 71 years COMPARISON: None available FINDINGS: Status post AICD insertion from left subclavian approach with good position. No evidence of pneumothorax. COPD with chronic interstitial changes. Patchy density is present in the right midlung laterally and could be reflection of the interstitial changes with overlying soft tissue attenuation. Upright PA and lateral chest may confirm. IMPRESSION: 1. Status post AICD insertion without radiographic evidence of complication 2. COPD with interstitial lung disease with possible infiltrate or atelectasis in the right midlung laterally
[2017-03-28 14:17] VITALS: BP 102/62
--- NOTE | 2017-03-28 15:14 | RADIOLOGY REPORT PS360 ---
PACEMAKER/DEFIBRILLATOR CLINICAL INDICATION: PACEMAKER PLACEMENT ORDERING PHYSICIAN: Fuentes Georges MD PATIENT AGE: 71 years Fluoroscopy time: 1 minute and 36 seconds COMPARISON: None FINDINGS: 2 images submitted with the C-arm during AICD placement available for position review. IMPRESSION: As above
--- NOTE | 2017-04-10 10:23 | Operative Note ---
AICD Date of procedure: 03/28/17 Time: 1000 Preoperative Diagnosis: MADIT II Ischemic Cardiomyopathy EF <30% NYHA Class 2-3 CHF Indication for test: Same Complications: None EBL Less than 10 ml Technique: 1% Lidocaine with epinephrine used to anesthetize the left anterior aspect of the chest.Scalpel was used to make the initial cutaneous incision while electrocautery was used to dissect down into the fascia. The fascia was lifted off the pectoralis muscle and digitally manipulated creating a pocket for the pacemaker. The patient was then placed in Trendelenburg position and the subclavian vein was accessed via the Selinger technique. A 7 Afghan sheath was placed under fluoroscopic guidance into the subclavian vein. Following this, an additional wire was placed into the sheath. Now, with two wires inside the 7 Afghan sheath, this sheath was removed, maintaining the two wires in the subclavian vein. The sheath and dilator was then placed over one of the wires while keeping the other wire in place within the subclavian vein. The dilator was removed from the sheath. Using fluoroscopic guidance, the ventricular lead was placed into the right ventricular apex, screwed and secured into place. Electronic interrogation proved acceptable thresholds and voltage within the lead. Using 3-0 silk, the ventricular lead was then secured into place. Lead was secured to the fascia using the 3-0 silk. Following this, the sheath was pealed away. An additional 7 Afghan fresh sheath and dilator was placed over the existing wire. Using fluoroscopic guidance, the atrial lead was then placed into the right atrial appendage and screwed and secured in place. Electrical interrogation demonstrated acceptable thresholds and voltage numbers. The atrial lead was then secured into place using 3-0 silk and then the lead was finally secured to the fascia. With both the atria and ventricular leads in place with acceptable thresholds and sensitivity, the atrial and ventricular leads were placed into the pacemaker generator. Pacemaker generator was then secured to the fascia using 3-0 silk. 1 gram of Ancef was used to flush the pocket. Following the pacemaker being secured to the fascia and in place, Monocryl was used to close the subcutaneous layers while nancy were used to close the cutaneous layer. A pressure dressing was placed and the patient was transferred to the postop holding area in stable condition for postoperative care. Impression: Procedure 1. Pocket formation for AICD. 2. Placement of atrial sensing and pacing coil into the right atrial appendage. 3. Placement of ventricular sensing, pacing and shocking coil in the right ventricular apex. 4. Permanent AICD placement. Interrogation: Generator St. Sky Model # [id number] Serial # [id number] RA Model # [id number] Serial # [id number] P-wave 1.5-2.0 Impedance 610 Threshold 0.25 Pulse Width 0.5 mA RVA Model # [id number] Serial # [id number] R-wave >12 Impedance 610 Threshold 0.5 Pulse Width 0.5 mA Pacing Parameters: Mode: DDI Base/Max Track: 60 bpm Max Sensor Therapies: VT 1 monitors at 150 bpm VT 2 171 bpm ATP X 3 30, 36 VF 214 bpm ATP w/c 30, 36 Serial number: See above Plan: Routine post op care at 1025
--- NOTE | 2017-04-10 10:23 | Operative Note ---
AICD Date of procedure: 03/28/17 Time: 1000 Preoperative Diagnosis: MADIT II Ischemic Cardiomyopathy EF <30% NYHA Class 2-3 CHF Indication for test: Same Complications: None EBL Less than 10 ml Technique: 1% Lidocaine with epinephrine used to anesthetize the left anterior aspect of the chest.Scalpel was used to make the initial cutaneous incision while electrocautery was used to dissect down into the fascia. The fascia was lifted off the pectoralis muscle and digitally manipulated creating a pocket for the pacemaker. The patient was then placed in Trendelenburg position and the subclavian vein was accessed via the Selinger technique. A 7 Dutch sheath was placed under fluoroscopic guidance into the subclavian vein. Following this, an additional wire was placed into the sheath. Now, with two wires inside the 7 Dutch sheath, this sheath was removed, maintaining the two wires in the subclavian vein. The sheath and dilator was then placed over one of the wires while keeping the other wire in place within the subclavian vein. The dilator was removed from the sheath. Using fluoroscopic guidance, the ventricular lead was placed into the right ventricular apex, screwed and secured into place. Electronic interrogation proved acceptable thresholds and voltage within the lead. Using 3-0 silk, the ventricular lead was then secured into place. Lead was secured to the fascia using the 3-0 silk. Following this, the sheath was pealed away. An additional 7 Dutch fresh sheath and dilator was placed over the existing wire. Using fluoroscopic guidance, the atrial lead was then placed into the right atrial appendage and screwed and secured in place. Electrical interrogation demonstrated acceptable thresholds and voltage numbers. The atrial lead was then secured into place using 3-0 silk and then the lead was finally secured to the fascia. With both the atria and ventricular leads in place with acceptable thresholds and sensitivity, the atrial and ventricular leads were placed into the pacemaker generator. Pacemaker generator was then secured to the fascia using 3-0 silk. 1 gram of Ancef was used to flush the pocket. Following the pacemaker being secured to the fascia and in place, Monocryl was used to close the subcutaneous layers while nancy were used to close the cutaneous layer. A pressure dressing was placed and the patient was transferred to the postop holding area in stable condition for postoperative care. Impression: Procedure 1. Pocket formation for AICD. 2. Placement of atrial sensing and pacing coil into the right atrial appendage. 3. Placement of ventricular sensing, pacing and shocking coil in the right ventricular apex. 4. Permanent AICD placement. Interrogation: Generator St. Sky Model # [id number] Serial # [id number] RA Model # [id number] Serial # [id number] P-wave 1.5-2.0 Impedance 610 Threshold 0.25 Pulse Width 0.5 mA RVA Model # [id number] Serial # [id number] R-wave >12 Impedance 610 Threshold 0.5 Pulse Width 0.5 mA Pacing Parameters: Mode: DDI Base/Max Track: 60 bpm Max Sensor Therapies: VT 1 monitors at 150 bpm VT 2 171 bpm ATP X 3 30, 36 VF 214 bpm ATP w/c 30, 36 Serial number: See above Plan: Routine post op care at 1027
== END 2017-03-28 10:40 | disposition home or self-care (01) ==
LOC: SDC 06:05
PROVIDERS: Internal Medicine
PROC: 0JH60PZ Insertion of Cardiac Rhythm Related Device into Chest Subcutaneous Tissue and Fascia, Open Approach (ICD-10-PCS; 2017-03-28)
PROC: 0JH608Z Insertion of Defibrillator Generator into Chest Subcutaneous Tissue and Fascia, Open Approach (ICD-10-PCS; principal; 2017-03-28 07:30)
DX: I25.5 Ischemic cardiomyopathy (principal); Z45.02 Encounter for adjustment and management of automatic implantable cardiac defibrillator
CPT/HCPCS: C1882; C1895; C1898

== ENCOUNTER 2017-04-07 08:51 | Outpatient (CLI) | payer OTHER, MEDICARE | END 2017-04-07 09:50 | LOC: ACC 08:51 | DX: I23.6 Thrombosis of atrium, auricular appendage, and ventricle as current complications following acute myocardial infarction (principal); Z79.01 Long term (current) use of anticoagulants; Z51.81 Encounter for therapeutic drug level monitoring | CPT/HCPCS: G0463 ==

== ENCOUNTER 2017-04-17 08:47 | Outpatient (CLI) | payer OTHER, MEDICARE | END 2017-04-17 16:17 | LOC: ACC 08:47 | DX: I23.6 Thrombosis of atrium, auricular appendage, and ventricle as current complications following acute myocardial infarction (principal); Z79.01 Long term (current) use of anticoagulants; Z51.81 Encounter for therapeutic drug level monitoring | CPT/HCPCS: G0463 ==